=== PATIENT | male | born 1990 | race Caucasian/White ===

== ENCOUNTER 2018-09-15 07:33 | Emergency (ER) | payer OTHER | END 2018-09-15 11:03 | disposition home or self-care (01) | LOC: FTE 07:33 | DX: S02.2XXA Fracture of nasal bones, initial encounter for closed fracture (principal); S09.90XA Unspecified injury of head, initial encounter; I10 Essential (primary) hypertension; F17.210 Nicotine dependence, cigarettes, uncomplicated; W18.30XA Fall on same level, unspecified, initial encounter; Y92.091 Bathroom in other non-institutional residence as the place of occurrence of the external cause | CPT/HCPCS: 70450; 70486; 99284-25 ==